=== PATIENT | male | born 1960 | race Caucasian/White ===

== ENCOUNTER 2021-08-20 09:24 | Outpatient (CLI) | payer OTHER | END 2021-08-20 09:25 | disposition home or self-care (01) | LOC: SCSRAD 09:24 | PROVIDERS: ATTEND Family Medicine | DX: M25.532 Pain in left wrist (principal) ==

== ENCOUNTER 2021-10-07 11:45 | Outpatient (CLI) | payer OTHER | END 2021-10-07 11:46 | disposition home or self-care (01) | LOC: SCSRAD 11:45 | PROVIDERS: ATTEND Family Medicine | DX: M47.26 Other spondylosis with radiculopathy, lumbar region (principal) | CPT/HCPCS: 72120 ==

== ENCOUNTER 2024-03-22 09:58 | Inpatient (IN) | payer OTHER ==
[2024-03-22 10:57] LABS: #Basophils 0.06 10x3/uL (0.0-0.2); %Basophils 0.8 % (0.0-1.0); %Eosinophils 3.4 % (0.0-10.0); %Monocytes 6.4 % (0.0-10.0); %Neutrophils 59.1 % (42.0-75.0); Hematocrit 45.5 % (42.0-52.0); Hemoglobin 16.1 g/dL (14.0-18.0); Mean Corpuscular HGB CONC 35.4 g/dL (32.0-36.0); Mean Corpuscular Hemoglobin 29.8 pg (27.0-31.0); Mean Corpuscular Volume 84.3 fL (78.0-98.0); Mean Platelet Volume 9.4 fL (7.4-10.4); Platelet Count 194 10x3/uL (130-400); RBC Distribution Width 11.9 % (11.5-14.5)
[2024-03-22 11:16] LABS: ALT (SGPT) 34 U/L (Less than 45); AST (SGOT) 29 U/L (11-34); Albumin 3.7 g/dL (3.1-4.5); Alkaline Phosphatase 99 U/L (40-110); Anion Gap 12 mmol/L (10-20); BUN (Urea Nitrogen) 9 mg/dL (8.4-25.7); Calc. Creatinine Clearance 0 mL/min (70-130); Calcium 8.3 mg/dL (7.8-10.44); Carbon Dioxide 23 mmol/L (23-31); Chloride 109 mmol/L (98-107); Estimated GFR 92; Globulin 3.2 g/dL (2.4-3.5); Glucose 108 mg/dL (80-115); Protein, Total 6.9 g/dL (5.8-8.1); Sodium 140 mmol/L (136-145)
[2024-03-22 11:17] LABS: Troponin I Less than 0.010 ng/mL (< 0.028)
[2024-03-22 11:22] LABS: Bacteria/HPF None Seen HPF (None Seen); Bilirubin Negative (Negative); Blood, Urine Negative (Negative); CAUTI Indications for Culture Dysuria,urgency,freq; Clarity Clear (Clear); Glucose, Urine (Dipstick) Normal (Negative); Ketone, Urine Negative (Negative); Leukocyte Negative Leu/uL (Negative); Nitrite Negative (Negative); Protein, Urine (Dipstick) Negative (Neg-Trace); RBC/HPF 0-3 HPF (0-3); Specific Gravity, Urine 1.015 (1.002-1.036); Squamous Epithelial 0-3 HPF (0-3); Urobilinogen Normal mg/dL (Less than 2); WBC/HPF 0-3 HPF (0-3); pH, Urine 5.5 (5.0-9.0)
[2024-03-22 11:34] LABS: Urine Culture Reflex No No
[2024-03-22] MEDS ORDERED: Acetaminophen 325 MG TAB PO PRN (13:28)
[2024-03-22] MEDS ORDERED: hydrALAZINE 20 MG/ML VIAL SLOW IVP PRN (13:28)
[2024-03-22] MEDS ORDERED: Aspirin Chewable 81 MG TAB ONE (13:31)
[2024-03-22 16:35] VITALS: BMI 31.1
[2024-03-22] MEDS ORDERED: Atorvastatin Calcium 40 MG TAB PO SCH (21:00)
[2024-03-23 05:00] LABS: Cardiac Risk 6.7 (Less than 4.5)
[2024-03-23] MEDS: Aspirin 81 mg Enteric Coated Tablet PO SCH (07:59)
[2024-03-23] MEDS: Sertraline 25 MG TAB PO SCH (08:00)
[2024-03-23] MEDS: Rosuvastatin 20 MG TAB PO SCH (08:00)
[2024-03-23] MEDS: Bisoprolol Fumarate/HCTZ 10 mg/6.25 mg Tablet PO SCH (08:00)
[2024-03-23] MEDS: Enoxaparin 40 MG (0.4 mL) SYRINGE SC SCH (08:00)
[2024-03-23] MEDS ORDERED: Rosuvastatin 20 MG TAB PO SCH (10:03)
[2024-03-24] MEDS: Rosuvastatin 20 MG TAB PO SCH (09:39)
[2024-03-24] MEDS: Amlodipine 5 MG TAB PO SCH (09:40)
[2024-03-24 12:19] VITALS: BP 151/88; TEMP 97.8
== END 2024-03-24 15:10 | disposition home or self-care (01) | DRG 66 ==
LOC: ERS 09:58 → ERHOLD 12:46 → 2SE 16:27 → OBSVTOIN 03-23 09:48
PROVIDERS: ADMIT Internal Medicine; ATTEND Internal Medicine
DX: I63.9 Cerebral infarction, unspecified (principal); I10 Essential (primary) hypertension; E78.00 Pure hypercholesterolemia, unspecified; Z98.890 Other specified postprocedural states; Z79.82 Long term (current) use of aspirin; Z79.899 Other long term (current) drug therapy
CPT/HCPCS: 36415; 70450; 70551; 74230; 80053; 80061; 81001; 84443; 84484; 85025; 93005; 93306; 93880; 96372; G0378; J1650